=== PATIENT | female | born 1960 | race Caucasian/White ===

== ENCOUNTER 2018-05-08 20:47 | Emergency (ER) | payer MEDICAID, SELFPAY ==
[2018-05-08 20:48] VITALS: BP 135/101; PULSE 81; RESP 16; TEMP 36.7; O2SAT 97; BMI 22.7
--- NOTE | 2018-05-08 22:23 | ED.RN ---
CRITICAL ETOH CALLED FROM LAB, AWARE
--- NOTE | 2018-05-08 23:23 | ED.VISSUMM ---
- ER Visit Summary Date of Service: 05/08/18 Chief Complaint: Fall History of Present Illness: The patient is a 57 F with no primary care physician. She reports that she has had 7 drinks today and fell striking her head. She does not remember this. She is unsure whether she lost consciousness. She denies any neck, back, shoulder, wrist, or hip pain. Physical Examination: Vitals: Stable. Afebrile. Head: 0.5 cm laceration in the right occipital region without active bleeding. Neck: No vertebral tenderness. Full ROM without difficulty. However, the patient is intoxicated and cannot be cleared by NEXUS criteria. Back: No vertebral tenderness. General: A&O x 3. NAD. Cardiovascular exam: Regular rate and rhythm, no murmur, rub or gallop. Respiratory exam: Chest nontender. No crepitus. Clear to auscultation bilaterally. No wheezes or stridor. Abdominal exam: Soft, nontender, nondistended, normal bowel sounds. No pain in RUQ or LUQ specifically. No peritoneal signs. Extremity: Atraumatic. No pain with range of motion. Test Results: CT brain shows no intracranial hemorrhage. CT C-spine shows no fracture or dislocation. However, she does have a 2 cm right thyroid nodule. Blood alcohol level was 314. Emergency Department Course and Treatment: Patient's been able to ambulate about the emergency department without any difficulty. She is not intoxicated clinically. Her significant other is here and would like to take her home. Patient refused repair of her laceration. Treatment Plan: Patient will be discharged instructions to follow-up the vital instructions clinic within 1 week for further evaluation of her thyroid nodule. Return to the emergency department for any worsening symptoms. Disposition: To home in improved and stable condition. Impression: 1. Alcohol intoxication. 2. Fall. 3. Scalp laceration, 0.5 cm, not repaired. 4. 2 cm right thyroid nodule. This note was generated with [employer] dictation software. It may contain incorrect words, spelling, and punctuation that were not noted in review of the chart prior to signing ED Disposition - Plan for ED Patient: Disposition: Home or Assisted Living Chief Complaint: Laceration Instructions: Evaluating Thyroid Problems, ED Laceration Small Superf No Sutr Referrals: Tea Morales [NON-STAFF] - 1 Week
[2018-05-08 23:33] VITALS: BP 130/86; PULSE 81; RESP 18; O2SAT 96
== END 2018-05-08 23:33 | disposition home or self-care (01) ==
PROVIDERS: Emergency Provider Emergency Medicine
DX: S01.01XA Laceration without foreign body of scalp, initial encounter (principal); E04.1 Nontoxic single thyroid nodule; F10.129 Alcohol abuse with intoxication, unspecified; Z72.0 Tobacco use; Y90.8 Blood alcohol level of 240 mg/100 ml or more; W19.XXXA Unspecified fall, initial encounter; Y93.89 Activity, other specified; Y92.89 Other specified places as the place of occurrence of the external cause; Y99.8 Other external cause status
CPT/HCPCS: 36415; 70450; 72125; 80320; 99284; G0480